=== PATIENT | male | born 1985 | race Caucasian/White ===

== ENCOUNTER 2018-03-05 21:14 | Inpatient (IN) | payer OTHER ==
[2018-03-05] MEDS ORDERED: NALOXONE 0.4 MG/ML 1 ML VIAL IV STA (21:18)
[2018-03-05] MEDS ORDERED: SODIUM CHLORIDE 0.9% 1,000 ML IV STA (21:18)
[2018-03-05] MEDS ORDERED: ACTIVATED CHARCOAL 50 GM/240 ML BOTTLE NG-TUBE STA (21:19)
[2018-03-05 21:37] LABS: Basophils % (A) 0 %; Eosinophils # (A) 0.1 k/uL (0-0.7); Eosinophils % (A) 1 %; HCT 41.6 % (39.0-53.0); HGB 14.7 gm/dL (13.0-17.5); Lymphocytes # (A) 2.4 k/uL (1.0-4.8); Lymphocytes % (A) 21 %; MCH 29.8 pg (25.0-35.0); MCHC 35.2 g/dL (31.0-37.0); MCV 84.6 fL (80.0-100.0); Mean Platelet Volume 8.2; Monocytes # (A) 0.5 k/uL (0-1.0); Monocytes % (A) 4 %; Neutrophils # (A) 8.2 k/uL (1.3-7.7); Neutrophils % (A) 72 %; Platelet Count 248 k/uL (150-450); RBC 4.92 m/uL (4.30-5.90); RDW 12.4 % (11.5-15.5); WBC 11.5 k/uL (3.8-10.6)
[2018-03-05 21:52] LABS: INR 1.1 (<1.2)
[2018-03-05 21:53] LABS: Prothrombin Time 10.5 sec (9.0-12.0)
[2018-03-05 21:56] LABS: ALT 26 U/L (21-72); AST 20 U/L (17-59); Albumin 4.3 g/dL (3.5-5.0); Alcohol <10 mg/dL; Alkaline Phosphatase 100 U/L (38-126); Anion Gap 13 mmol/L; Blood Urea Nitrogen 8 mg/dL (9-20); Calcium 9.7 mg/dL (8.4-10.2); Carbon Dioxide 25 mmol/L (22-30); Chloride 103 mmol/L (98-107); Glucose 121 mg/dL (74-99); Lipase 88 U/L (23-300); Potassium 3.7 mmol/L (3.5-5.1); Salicylate <1.0 mg/dL; Sodium 141 mmol/L (137-145); Total Bilirubin 0.5 mg/dL (0.2-1.3); Total Protein 6.7 g/dL (6.3-8.2)
--- NOTE | 2018-03-05 21:56 | ED ---
General Adult HPI - General Chief complaint: Overdose Stated complaint: Overdose Time Seen by Provider: 03/05/18 21:18 Source: police, EMS, RN notes reviewed, old records reviewed Mode of arrival: EMS Limitations: altered mental status - History of Present Illness Initial comments: 32-year-old male presents as overdose and suicide attempt. Brought in by EMS and local police. He took an unknown amount of pills. These pills were not in any bottles. It is believed that this was gabapentin, citalopram, and verapamil although this is uncertain. Patient is not alert at initial presentation he is protecting his airway. - Related Data Allergies Allergy/AdvReac Type Severity Reaction Status Date / Time Unable to Assess Allergy Verified 03/05/18 21:21 Review of Systems ROS Statement: Those systems with pertinent positive or pertinent negative responses have been documented in the HPI. ROS Other: All systems not noted in ROS Statement are negative. Past Medical History Past Medical History: Unable to Obtain History of Any Multi-Drug Resistant Organisms: Unobtainable Past Surgical History: Unable to Obtain Past Psychological History: Unable to Obtain Smoking Status: Unknown if ever smoked Past Alcohol Use History: Unable to Obtain Past Drug Use History: Unable to Obtain General Exam Limitations: altered mental status General appearance: obtunded (Normal gag, spontaneous respiration) Head exam: Present: atraumatic, normocephalic Eye exam: Present: normal appearance, PERRL ENT exam: Present: mucous membranes dry Neck exam: Present: normal inspection. Absent: tenderness, meningismus Respiratory exam: Present: normal lung sounds bilaterally. Absent: respiratory distress Cardiovascular Exam: Present: normal rhythm, tachycardia GI/Abdominal exam: Present: soft. Absent: distended, tenderness, guarding Extremities exam: Present: normal inspection, normal capillary refill. Absent: pedal edema Neurological exam: Present: motor sensory deficit (Extremities symmetric) Psychiatric exam: Present: suicidal ideation Skin exam: Present: warm, dry, intact. Absent: cyanosis, diaphoretic Course Vital Signs 03/05/18 03/05/18 03/05/18 21:15 22:09 22:34 Temperature 97.7 F Pulse Rate 127 H 128 H 91 Respiratory 12 18 18 Rate Blood Pressure 135/82 142/82 132/79 O2 Sat by Pulse 100 95 98 Oximetry 03/05/18 23:18 Temperature 98.0 F Pulse Rate 77 Respiratory 18 Rate Blood Pressure 93/56 O2 Sat by Pulse 96 Oximetry - Reevaluation(s) Reevaluation #1: 03/05/18 22:22 On reevaluation, patient is admitting to overdose. He is uncertain how many pills he took. Nasogastric tube was replaced and charcoal has been administered. Reevaluation #2: 03/05/18 23:58 On reevaluation, patient is arousable to sternal rub. He does admit to taking pills as a suicide attempt. He is breathing normally and protecting his airway. EKG Findings - EKG Comments: EKG Findings:: EKG: Sinus tachycardia minimal voltage for LVH, rate of 109, [place] interval 150, QRS duration 84, QTC 463 Procedures - Restraint - Face to Face Restraint Occurrence 1 Patient's Immediate Situation: Endangers self safety, Endangers others' safety Patient's Reaction to the Intervention: Calm, Relaxed Patient's Medical & Behavioral Condition: Awake, Alert, Follows directions Need to Continue or Terminate Restraint or Seclusion: Continue Face to Face Eval of Restraint Date: 03/05/18 Face to Face Eval of Restraint Time: 21:25 Medical Decision Making - Medical Decision Making 32-year-old male with overdose and suicide attempt. Patient took an unknown quantity of an unknown amount of medication prior to arrival. NG tube was placed and charcoal given. Laboratory studies reveal normal hemoglobin, mildly elevated white count at 11.5, sodium 141, lactic acid 3.5 this is treated with normal saline infusion. Aspirin is negative, alcohol negative, acetaminophen is elevated at 23. Uncertain at the timing of ingestion of Tylenol. Poison control recommends treating with N-acetylcysteine. Patient will be loaded with 150 mg/kg, second and third dosing are also ordered for 21 hour protocol. Repeat Tylenol level will be obtained as well as repeat AST and ALTs in the morning which is 6 hours from now. Patient is placed on suicide precautions, psychiatry is placed on consult for evaluation one patient is medically cleared. Diagnosis: Overdose, concern for Tylenol overdose, suicide attempt - Lab Data Result diagrams: 03/05/18 21:23 03/05/18 21:23 Lab Results 03/05/18 03/05/18 03/05/18 Range/Units 21:23 21:23 21:23 WBC 11.5 H (3.8-10.6) k/uL RBC 4.92 (4.30-5.90) m/uL Hgb 14.7 (13.0-17.5) gm/dL Hct 41.6 (39.0-53.0) % MCV 84.6 (80.0-100.0) fL MCH 29.8 (25.0-35.0) pg MCHC 35.2 (31.0-37.0) g/dL RDW 12.4 (11.5-15.5) % Plt Count 248 (150-450) k/uL Neutrophils % 72 % Lymphocytes % 21 % Monocytes % 4 % Eosinophils % 1 % Basophils % 0 % Neutrophils # 8.2 H (1.3-7.7) k/uL Lymphocytes # 2.4 (1.0-4.8) k/uL Monocytes # 0.5 (0-1.0) k/uL Eosinophils # 0.1 (0-0.7) k/uL Basophils # 0.0 (0-0.2) k/uL PT 10.5 (9.0-12.0) sec INR 1.1 (<1.2) Sodium 141 (137-145) mmol/L Potassium 3.7 (3.5-5.1) mmol/L Chloride 103 (98-107) mmol/L Carbon Dioxide 25 (22-30) mmol/L Anion Gap 13 mmol/L BUN 8 L (9-20) mg/dL Creatinine 0.80 (0.66-1.25) mg/dL Est GFR (CKD-EPI)AfAm >90 (>60 ml/min/1.73 sqM) Est GFR (CKD-EPI)NonAf >90 (>60 ml/min/1.73 sqM) Glucose 121 H (74-99) mg/dL Plasma Lactic Acid Moses (0.7-2.0) mmol/L Calcium 9.7 (8.4-10.2) mg/dL Total Bilirubin 0.5 (0.2-1.3) mg/dL AST 20 (17-59) U/L ALT 26 (21-72) U/L Alkaline Phosphatase 100 (38-126) U/L Troponin I (0.000-0.034) ng/mL Total Protein 6.7 (6.3-8.2) g/dL Albumin 4.3 (3.5-5.0) g/dL Lipase 88 (23-300) U/L Urine Color Urine Appearance (Clear) Urine pH (5.0-8.0) Ur Specific Jessie (1.001-1.035) Urine Protein (Negative) Urine Glucose (UA) (Negative) Urine Ketones (Negative) Urine Blood (Negative) Urine Nitrite (Negative) Urine Bilirubin (Negative) Urine Urobilinogen (<2.0) mg/dL Ur Leukocyte Esterase (Negative) Urine RBC (0-5) /hpf Urine WBC (0-5) /hpf Urine Bacteria (None) /hpf Salicylates <1.0 mg/dL Urine Opiates Screen (NotDetected) Ur Oxycodone Screen (NotDetected) Urine Methadone Screen (NotDetected) Ur Propoxyphene Screen (NotDetected) Acetaminophen 23.0 ug/mL Ur Barbiturates Screen (NotDetected) U Tricyclic Antidepress (NotDetected) Ur Phencyclidine Scrn (NotDetected) Ur Amphetamines Screen (NotDetected) U Methamphetamines Scrn (NotDetected) U Benzodiazepines Scrn (NotDetected) Urine Cocaine Screen (NotDetected) U Marijuana (THC) Screen (NotDetected) Serum Alcohol <10 mg/dL 03/05/18 03/05/18 03/05/18 Range/Units 21:23 21:23 22:00 WBC (3.8-10.6) k/uL RBC (4.30-5.90) m/uL Hgb (13.0-17.5) gm/dL Hct (39.0-53.0) % MCV (80.0-100.0) fL MCH (25.0-35.0) pg MCHC (31.0-37.0) g/dL RDW (11.5-15.5) % Plt Count (150-450) k/uL Neutrophils % % Lymphocytes % % Monocytes % % Eosinophils % % Basophils % % Neutrophils # (1.3-7.7) k/uL Lymphocytes # (1.0-4.8) k/uL Monocytes # (0-1.0) k/uL Eosinophils # (0-0.7) k/uL Basophils # (0-0.2) k/uL PT (9.0-12.0) sec INR (<1.2) Sodium (137-145) mmol/L Potassium (3.5-5.1) mmol/L Chloride (98-107) mmol/L Carbon Dioxide (22-30) mmol/L Anion Gap mmol/L BUN (9-20) mg/dL Creatinine (0.66-1.25) mg/dL Est GFR (CKD-EPI)AfAm (>60 ml/min/1.73 sqM) Est GFR (CKD-EPI)NonAf (>60 ml/min/1.73 sqM) Glucose (74-99) mg/dL Plasma Lactic Acid Moses 3.8 H* (0.7-2.0) mmol/L Calcium (8.4-10.2) mg/dL Total Bilirubin (0.2-1.3) mg/dL AST (17-59) U/L ALT (21-72) U/L Alkaline Phosphatase (38-126) U/L Troponin I <0.012 (0.000-0.034) ng/mL Total Protein (6.3-8.2) g/dL Albumin (3.5-5.0) g/dL Lipase (23-300) U/L Urine Color Light Yellow Urine Appearance Clear (Clear) Urine pH 7.0 (5.0-8.0) Ur Specific Jessie 1.003 (1.001-1.035) Urine Protein Negative (Negative) Urine Glucose (UA) Negative (Negative) Urine Ketones Negative (Negative) Urine Blood Small H (Negative) Urine Nitrite Negative (Negative) Urine Bilirubin Negative (Negative) Urine Urobilinogen <2.0 (<2.0) mg/dL Ur Leukocyte Esterase Negative (Negative) Urine RBC 1 (0-5) /hpf Urine WBC 1 (0-5) /hpf Urine Bacteria Rare H (None) /hpf Salicylates mg/dL Urine Opiates Screen Not Detected (NotDetected) Ur Oxycodone Screen Not Detected (NotDetected) Urine Methadone Screen Not Detected (NotDetected) Ur Propoxyphene Screen Not Detected (NotDetected) Acetaminophen ug/mL Ur Barbiturates Screen Detected H (NotDetected) U Tricyclic Antidepress Not Detected (NotDetected) Ur Phencyclidine Scrn Not Detected (NotDetected) Ur Amphetamines Screen Not Detected (NotDetected) U Methamphetamines Scrn Not Detected (NotDetected) U Benzodiazepines Scrn Not Detected (NotDetected) Urine Cocaine Screen Not Detected (NotDetected) U Marijuana (THC) Screen Not Detected (NotDetected) Serum Alcohol mg/dL Critical Care Time Critical Care Time: Yes Total Critical Care Time: 35 Disposition Clinical Impression: Acetaminophen overdose, Drug overdose, Suicide attempt by multiple drug overdose Disposition: ADMITTED IP TO THIS [facility] Condition: Serious Is patient prescribed a controlled substance at d/c from ED?: No Referrals: None,Stated [Primary Care Provider] - 1-2 days Decision to Admit Reason: Admit from EC Decision Date: 03/06/18 Decision Time: 00:05
[2018-03-05 22:20] LABS: Appearance,Urine Clear (Clear); Bacteria,Urine Rare /hpf; Bilirubin,Urine Negative (Negative); Blood,Urine Small (Negative); Color,Urine Light Yellow; Glucose,Urine (UA) Negative (Negative); Ketones,Urine Negative (Negative); Leukocyte Esterase,Urine Negative (Negative); Nitrite,Urine Negative (Negative); Protein,Urine Negative (Negative); RBC,Urine 1 /hpf (0-5); Specific Gravity,Urine 1.003 (1.001-1.035); Urobilinogen,Urine <2.0 mg/dL (<2.0); WBC,Urine 1 /hpf (0-5)
[2018-03-05] MEDS ORDERED: SODIUM CHLORIDE 0.9% 1,000 ML IV ONE (22:20)
[2018-03-05 22:31] LABS: Cocaine Screen,Urine Not Detected (NotDetected); Phencyclidine Screen,Urine Not Detected (NotDetected); Urn Cannabinoid Scrn Not Detected (NotDetected)
[2018-03-05 22:32] LABS: Amphetamine Screen,Urine Not Detected (NotDetected); Barbiturate Screen,Urine Detected (NotDetected); Benzodiazepines Screen,Urine Not Detected (NotDetected); Methadone Screen, Urine Not Detected (NotDetected); Opiate Screen,Urine Not Detected (NotDetected); Oxycodone Screen, Urine Not Detected (NotDetected); Tricyclic Antidepressant,Urine Not Detected (NotDetected)
[2018-03-05] MEDS ORDERED: ACETYLCYSTEINE IV 200 MG/ML 30 ML VIAL IV ONE (22:34)
[2018-03-05] MEDS ORDERED: WATER IV ONE ×2 (23:00)
[2018-03-05] MEDS ORDERED: ACETYLCYSTEINE IV ONE ×2 (23:00)
[2018-03-05] MEDS ORDERED: DEXTROSE 5% IV ONE ×2 (23:00)
[2018-03-05] MEDS ORDERED: NALOXONE 0.4 MG/ML 1 ML VIAL IV PRN (23:55)
[2018-03-06] MEDS ORDERED: WATER IV ONE ×4 (00:15→04:30)
[2018-03-06] MEDS ORDERED: ACETYLCYSTEINE IV ONE ×4 (00:15→04:30)
[2018-03-06] MEDS ORDERED: DEXTROSE 5% IV ONE ×4 (00:15→04:30)
[2018-03-06] MEDS: SODIUM CHLORIDE 0.9% 1,000 ML IV SCH ×2 (00:32→15:53)
[2018-03-06 01:14] LABS: Glucose,Whole Blood 124 mg/dL (75-99)
[2018-03-06 01:42] LABS: Basophils % (A) 0 %; Eosinophils # (A) 0.1 k/uL (0-0.7); Eosinophils % (A) 1 %; HCT 39.1 % (39.0-53.0); Lymphocytes # (A) 2.3 k/uL (1.0-4.8); Lymphocytes % (A) 20 %; MCH 30.7 pg (25.0-35.0); MCHC 35.7 g/dL (31.0-37.0); MCV 85.9 fL (80.0-100.0); Mean Platelet Volume 8.6; Monocytes # (A) 0.4 k/uL (0-1.0); Monocytes % (A) 4 %; Neutrophils # (A) 8.5 k/uL (1.3-7.7); Neutrophils % (A) 74 %; Platelet Count 213 k/uL (150-450); RBC 4.55 m/uL (4.30-5.90); RDW 12.5 % (11.5-15.5); WBC 11.6 k/uL (3.8-10.6)
[2018-03-06 01:51] LABS: ALT 29 U/L (21-72); AST 12 U/L (17-59); Albumin 3.5 g/dL (3.5-5.0); Alkaline Phosphatase <20 U/L (38-126); Anion Gap 11 mmol/L; Blood Urea Nitrogen 6 mg/dL (9-20); Calcium 8.5 mg/dL (8.4-10.2); Carbon Dioxide 24 mmol/L (22-30); Chloride 108 mmol/L (98-107); Glucose 84 mg/dL (74-99); Magnesium 2.1 mg/dL (1.6-2.3); Potassium 3.9 mmol/L (3.5-5.1); Sodium 143 mmol/L (137-145); Total Bilirubin 0.3 mg/dL (0.2-1.3); Total Protein 5.7 g/dL (6.3-8.2)
[2018-03-06 01:54] VITALS: BMI 20.5
[2018-03-06 05:05] LABS: Basophils % (A) 0 %; Eosinophils # (A) 0.2 k/uL (0-0.7); Eosinophils % (A) 2 %; HCT 38.9 % (39.0-53.0); HGB 13.7 gm/dL (13.0-17.5); Lymphocytes # (A) 2.4 k/uL (1.0-4.8); Lymphocytes % (A) 22 %; MCHC 35.1 g/dL (31.0-37.0); MCV 85.4 fL (80.0-100.0); Mean Platelet Volume 7.8; Monocytes # (A) 0.6 k/uL (0-1.0); Monocytes % (A) 5 %; Neutrophils # (A) 7.4 k/uL (1.3-7.7); Neutrophils % (A) 69 %; Platelet Count 208 k/uL (150-450); RBC 4.56 m/uL (4.30-5.90); RDW 12.5 % (11.5-15.5); WBC 10.7 k/uL (3.8-10.6)
[2018-03-06 05:16] LABS: ALT 28 U/L (21-72); AST 14 U/L (17-59); Albumin 3.4 g/dL (3.5-5.0); Alkaline Phosphatase 35 U/L (38-126); Anion Gap 10 mmol/L; Blood Urea Nitrogen 5 mg/dL (9-20); Calcium 8.8 mg/dL (8.4-10.2); Carbon Dioxide 25 mmol/L (22-30); Chloride 107 mmol/L (98-107); Glucose 88 mg/dL (74-99); Phosphorus 2.9 mg/dL (2.5-4.5); Potassium 3.5 mmol/L (3.5-5.1); Sodium 142 mmol/L (137-145); Total Bilirubin 0.6 mg/dL (0.2-1.3); Total Protein 5.6 g/dL (6.3-8.2)
[2018-03-06 05:20] LABS: INR 1.2 (<1.2); Prothrombin Time 11.2 sec (9.0-12.0)
[2018-03-06] MEDS ORDERED: ONDANSETRON 4 MG/2 ML VIAL IVP PRN (10:17)
[2018-03-06] MEDS ORDERED: CALCIUM CARBONATE 500 MG CHEWABLE PO PRN (10:18)
[2018-03-06] MEDS ORDERED: PANTOPRAZOLE 40 MG/10 ML VIAL IVP SCH (10:30)
[2018-03-06] MEDS: POTASSIUM CHLORIDE ER 20 MEQ TAB.ER PO SCH ×2 (11:44→15:53)
--- NOTE | 2018-03-06 11:58 | P.CN ---
Psychiatric Consult - . Consult date: 03/06/18 Consult:: 03/06/18 11:42 Patient was seen for a psych consult regarding "suicide attempt, overdose". Patient said he has been living with his girlfriend for the last 2 or 3 months. Apparently they had an argument, she took several pills and then patient took some pills went for a walk and then came back and took some more pills to get high. He insists it was only to get high and not to kill himself. He apparently posted something on Facebook saying that he doesn't want to live anymore etc. He also said he doesn't remember all those things and must have done all those things when he passed out. Patient denies any suicide attempts, self abusive behavior etc. in the past. He also said he never thought about dying or killing himself. He said he has 2 children 1 living in [facility] and another one in [facility]. He still is part of their life and said he cannot do anything to hurt himself since he loves his children too much. He said his plans include breaking up from his girlfriend and going back to [place] [facility] where he can get a good job. 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 He said he has Medicare health insurance. His UDS is positive for barbiturates and he does not know how it got in there since he does not do it. He thinks it is from his girlfriend's he'll box. His Tylenol level was 23 which is subtherapeutic, let alone toxic. Patient said he is not on any medication. He said he had taken Xanax and Zoloft in the past. He said he has not been going to his family doctor and ran out of prescription. He said he can make his own arrangement for outpatient follow-up in [facility] since they're these were he plans on going to. This is a rather thin white male who was seen in his bed. He has multiple tattoos. He has a well-maintained goatee and mustache with the skin around clean-shaven. He does not show any psychomotor agitation or retardation. His speech is spontaneous relevant and goal-directed. His mood is euthymic and affect is appropriate to the thought content. He denies hallucinations and delusional thinking. He insists that he is not having any thoughts of hurting himself or others. He is well oriented with adequate memory concentration etc. His insight appears to be fair and judgment appears to have been impaired yesterday as evidenced by his taking too many pills. Assessment: Probable adjustment disorder unspecified. Per his report this was not a suicide attempt and he denies current suicide thoughts or plans Suggestion: Patient does not need a sitter. Patient can be discharged when he is medically cleared. Patient would appreciate a mental health referral in [facility] upon discharge. But, the nurse tells me that patient has a police hold on him and has to be discharged to the custody of police. If he is going to be discharged to the police custody, police would need to make mental health referral upon release from the custody.
[2018-03-06 18:33] LABS: INR 1.2 (<1.2); Prothrombin Time 11.2 sec (9.0-12.0)
[2018-03-06 18:39] LABS: ALT 24 U/L (21-72); AST 13 U/L (17-59); Acetaminophen <10.0 ug/mL; Albumin 3.2 g/dL (3.5-5.0); Alkaline Phosphatase 58 U/L (38-126); Anion Gap 13 mmol/L; Blood Urea Nitrogen 3 mg/dL (9-20); Carbon Dioxide 24 mmol/L (22-30); Chloride 106 mmol/L (98-107); Glucose 109 mg/dL (74-99); Potassium 3.8 mmol/L (3.5-5.1); Sodium 143 mmol/L (137-145); Total Bilirubin 0.4 mg/dL (0.2-1.3); Total Protein 5.3 g/dL (6.3-8.2)
--- NOTE | 2018-03-06 19:25 | HP ---
HISTORY AND PHYSICAL DATE OF SERVICE: 03/06/2018 PRESENTING COMPLAINT: Overdose. HISTORY OF PRESENTING COMPLAINT: This is a 32-year-old patient with no family doctor. The patient was with his girlfriend and she was getting a bit stressed out. She decided to take 3 Klonopin with Xanax to go to sleep and during that time, he decided to go through her cellphone and he found that she has been talking to her to her ex-boyfriend and this really enraged him and the patient decided to take her pills handful by handful, which could have included the Klonopin, maybe Celexa, verapamil, gabapentin, but it is unclear, and he decided to then walk toward the water. He does not remember then what happened and the patient brought in by the police, who had petitioned him and then contacted poison control. The patient had an NG tube placed and charcoal was given, admitted to the ICU for close monitoring. When I saw the patient, the patient is awake and he states he feels stupid about the whole thing and it is not worth his life to give up for a girl and wanted to eat some food. At that time, the patient wanted to end it all and actually was planning to jump off the bridge. The patient initial acetaminophen level was 23, did come down to 11 and then to less than 10. Serum alcohol was less than 10. Salicylate was less than 1. Urine drug screen was positive for barbiturates. The patient has a diagnosis of anxiety, depression and stopped taking his medications, supposedly Paxil and Zoloft, a few months ago because of insurance reasons. The patient has a sitter. REVIEW OF SYSTEM: CONSTITUTIONAL: Tired. HEENT: None. RESPIRATORY: None. CARDIOVASCULAR: None. GASTROINTESTINAL: Some epigastric discomfort. GENITOURINARY: None. MUSCULOSKELETAL: None. DERMATOLOGIC: None. HEMATOLOGIC: None. LYMPHATIC: None. PSYCHIATRY: Anxiety, depression. NEUROLOGICAL: None. PAST MEDICAL HISTORY: Anxiety, depression, panic attacks. PAST SURGICAL HISTORY: Tonsillectomy. SOCIAL HISTORY: The patient smokes cigarettes, lives alone. Denies alcohol. Denies use of recreational drugs. FAMILY HISTORY: Reviewed, noncontributory to presentation. HOME MEDICATIONS: None. ALLERGIES: None. PHYSICAL EXAMINATION: VITAL SIGNS: On initial presentation, temperature 97.7, pulse 127, respirations 12, blood pressure 130/82, pulse ox 100% on 2L currently. GENERAL APPEARANCE: Sitting up, awake, tired-appearing. EYES: Pupils equal. Conjunctivae normal. HEENT: External nose and ears normal. Oral cavity normal. NECK: JVD not raised. Mass not palpable. RESPIRATORY: Effort normal. LUNGS: Clear. CARDIOVASCULAR: First and second sounds normal. No edema. ABDOMEN: Epigastric tenderness. No guarding or rigidity. Liver and spleen not palpable. LYMPHATIC: No lymph nodes palpable in neck or axillae. PSYCHIATRY: Alert and oriented x3. Mood and affect low-appearing. NEUROLOGICAL: Pupils equal. Cranial nerve grossly intact. Power and sensation grossly intact. INVESTIGATIONS: White count 11.5, hemoglobin 14.7. Potassium 3.7, BUN 8, creatinine 0.80. Anion gap is 13. Initial plasma lactic acid was 3.8. Troponin less than 0.012. Urine drug screen positive for barbiturates. Salicylates less than 1. Initial acetaminophen 23, then 11, then 10. Serum alcohol less than 10. ASSESSMENT: 1. Acute overdose of multiple drugs, exactly unknown. It could have been possible Klonopin, gabapentin, Celexa, but is unknown. Patient did receive charcoal. 2. Possible acetaminophen overdose. Since the quantity was not known, the protocol giving N-acetylcysteine needs to be to be followed. 3. Severe anxiety and depression resulting in suicide attempt, given the patient planned to jump off the bridge into the water. 4. Chronic nicotine dependence. Patient is a cigarette smoker. 5. Acute lactic acidosis, likely type 2. PLAN: The patient is getting IV fluids, getting N-acetylcysteine, is on telemetry. Psychiatry was consulted. I saw this patient earlier this month earlier today. I did do a certification. I did explain to the patient it is important for him to get psychiatry help. Care was discussed in detail with the patient. MMODL / IJN: [id number] /
[2018-03-06 21:31] VITALS: BP 110/58; PULSE 53; RESP 15; TEMP 97.9
[2018-03-06 21:48] LABS: INR 1.2 (<1.2); Prothrombin Time 11.2 sec (9.0-12.0)
[2018-03-06 21:53] LABS: ALT 27 U/L (21-72); AST 13 U/L (17-59)
--- NOTE | 2018-03-12 06:01 | DS ---
DISCHARGE SUMMARY DATE OF ADMISSION: March 05, 2018. DATE OF DISCHARGE: March 06, 2018. FINAL DIAGNOSES: 1. Acute overdose of multiple drugs possibly including Klonopin, Gabapentin and Celexa. 2. Possible acetaminophen overdose. Patient given a course of N-acetylcysteine. 3. Suicide attempt. 4. Chronic nicotine dependence, patient is a cigarette smoker. 5. Acute lactic acidosis, likely type 2. 6. Adjustment disorder. HOSPITAL COURSE: This patient who found on a girlfriend's phone that she was nilesh her ex- boyfriend. The patient became upset and took an overdose of what may have been Celexa, verapamil, Gabapentin and the patient was petitioned and Poison Control was contacted from the ER. NG tube was placed. [place] was given. The patient was in the ICU. Did receive N-acetylcysteine. Initial acetaminophen level was 23. Later when the patient came around, he did feel that he was very stupid doing about the whole thing. Had a sitter initially. The patient was seen by Psychiatry, Dr. Ibarra who okayed and cleared to go home. The patient otherwise was feeling much better. EXAM: Lungs are clear. Cardiovascular: 1st and second sounds normal. The patient's liver functions were good and acetaminophen level less than 10. DISCHARGE MEDICATIONS: None. FOLLOWUP: With [facility] in 1 week[address] Follow up with Dr. Devine in [address] Devine. MMJAIMEL / UMAN: [id number] /
== END 2018-03-06 23:35 | DRG 918 ==
LOC: EC 21:14 → 6ICU 23:55
PROVIDERS: ADMIT Hospitalist; ATTEND Hospitalist
PROC: 0DH673Z Insertion of Infusion Device into Stomach, Via Natural or Artificial Opening (ICD-10-PCS; principal; 2018-03-05)
DX: T42.3X2A Poisoning by barbiturates, intentional self-harm, initial encounter (principal); E87.2 Acidosis; T39.1X2A Poisoning by 4-Aminophenol derivatives, intentional self-harm, initial encounter; F43.20 Adjustment disorder, unspecified; F32.9 Major depressive disorder, single episode, unspecified; F41.0 Panic disorder [episodic paroxysmal anxiety]; F17.210 Nicotine dependence, cigarettes, uncomplicated; Z71.6 Tobacco abuse counseling
CPT/HCPCS: 36415; 80053; 80306; 80320; 81001; 83520; 83605; 83690; 83735; 84100; 84450; 84460; 84484; 85025; 85610; 93005; 96361; 96365; 96375; 99291

== ENCOUNTER 2018-03-07 21:48 | Inpatient (IN) | payer MEDICAID, OTHER ==
--- NOTE | 2018-03-07 22:42 | ED ---
General Adult HPI - General Chief complaint: Psychiatric Symptoms Stated complaint: mental health Time Seen by Provider: 03/07/18 22:10 Source: patient, RN notes reviewed Mode of arrival: ambulatory Limitations: no limitations - History of Present Illness Initial comments: This is a 32-year-old male who has a past history significant for anxiety and depression. Patient states on night he overdosed was admitted to the hospital he was released. Patient states since being released she's been just walking and hasn't slept at all and he is becoming more more anxious. Patient states his girlfriend overdosed today and he cannot find out the status of his girlfriend so he is made her more anxious and now he is suicidal. Patient states his last attempt was . Patient today denies any attempts and denies any illegal drugs or alcohol use. Patient denies any physical complaints today. Patient denies headache patient denies numbness weakness. Patient is chest pain or palpitations. Patient denies shortness of breath or difficulty breathing. Patient denies abdominal pain. Patient denies nausea vomiting diarrhea. Patient denies any recent fever chills or cough - Related Data Previous Rx's Medication Instructions Recorded Calcium Carbonate [Tums] 1,000 mg PO QID PRN chew 03/06/18 Nicotine 21Mg/24Hr Patch [Habitrol] 1 each TRANSDERM DAILY #30 patch 03/06/18 Allergies Allergy/AdvReac Type Severity Reaction Status Date / Time Unable to Assess Allergy Verified 03/05/18 21:21 Review of Systems ROS Statement: Those systems with pertinent positive or pertinent negative responses have been documented in the HPI. ROS Other: All systems not noted in ROS Statement are negative. Past Medical History Past Medical History: No Reported History Additional Past Medical History / Comment(s): Anxiety, Depression, and Panic Attacks History of Any Multi-Drug Resistant Organisms: None Reported Past Surgical History: Tonsillectomy Past Anesthesia/Blood Transfusion Reactions: No Reported Reaction Past Psychological History: Anxiety, Depression, Panic Disorder Smoking Status: Current every day smoker Past Alcohol Use History: None Reported Past Drug Use History: None Reported General Exam - General Exam Comments Initial Comments: GENERAL: Patient is well-developed and well-nourished. Patient is nontoxic and well- hydrated and is in no acute distress. ENT: Neck is soft and supple. No significant lymphadenopathy is noted. Oropharynx is clear. Moist mucous membranes. Neck has full range of motion without eliciting any pain. There is no thyroid enlargement and no masses were felt. EYES: The sclera were anicteric and conjunctiva were pink and moist. Extraocular movements were intact and pupils were equal round and reactive to light. Eyelids were unremarkable. PULMONARY: Unlabored respirations. Good breath sounds bilaterally. No audible rales rhonchi or wheezing was noted. CARDIOVASCULAR: There is a regular rate and rhythm without any murmurs gallops or rubs. Femoral pulses are equal bilaterally ABDOMEN: Soft and nontender with normal bowel sounds. No palpable organomegaly was noted. There is no palpable pulsatile mass. SKIN: Skin is clear with no lesions or rashes and otherwise unremarkable. NEUROLOGIC: Patient is alert and oriented x3. Cranial nerves II through XII are grossly intact. Motor and sensory are also intact. Normal speech, volume and content. Symmetrical smile. Cerebellar exam grossly intact. MUSCULOSKELETAL: Normal extremities with adequate strength and full range of motion. No lower extremity swelling or edema. No calf tenderness. LYMPHATICS: No significant lymphadenopathy is noted PSYCHIATRIC: Patient seems very anxious about the status of his girlfriend to overdose today. Patient is also tearful during his conversation with me and verbalizes suicidal ideations. Limitations: no limitations Course Vital Signs 03/07/18 22:11 Temperature 98.9 F Pulse Rate 89 Respiratory 18 Rate Blood Pressure 120/61 O2 Sat by Pulse 98 Oximetry Medical Decision Making - Medical Decision Making EPS came down to evaluate the patient and decided that the patient needed to stay. - Lab Data Lab Results 03/07/18 Range/Units 22:27 Urine Opiates Screen Not Detected (NotDetected) Ur Oxycodone Screen Not Detected (NotDetected) Urine Methadone Screen Not Detected (NotDetected) Ur Propoxyphene Screen Not Detected (NotDetected) Ur Barbiturates Screen Detected H (NotDetected) U Tricyclic Antidepress Not Detected (NotDetected) Ur Phencyclidine Scrn Not Detected (NotDetected) Ur Amphetamines Screen Not Detected (NotDetected) U Methamphetamines Scrn Not Detected (NotDetected) U Benzodiazepines Scrn Not Detected (NotDetected) Urine Cocaine Screen Not Detected (NotDetected) U Marijuana (THC) Screen Not Detected (NotDetected) Disposition Clinical Impression: Depression, Suicidal ideation Disposition: ADMITTED IP TO THIS HOSP Referrals: None,Stated [Primary Care Provider] - 1-2 days Time of Disposition: 02:35
[2018-03-07 23:01] LABS: Amphetamine Screen,Urine Not Detected (NotDetected); Barbiturate Screen,Urine Detected (NotDetected); Benzodiazepines Screen,Urine Not Detected (NotDetected); Cocaine Screen,Urine Not Detected (NotDetected); Methadone Screen, Urine Not Detected (NotDetected); Opiate Screen,Urine Not Detected (NotDetected); Oxycodone Screen, Urine Not Detected (NotDetected); Phencyclidine Screen,Urine Not Detected (NotDetected); Tricyclic Antidepressant,Urine Not Detected (NotDetected); Urn Cannabinoid Scrn Not Detected (NotDetected)
[2018-03-08] MEDS ORDERED: MAG HYDROX/AL HYDROX/SIMETH 30 ML CUP PO PRN (03:00)
[2018-03-08] MEDS ORDERED: ACETAMINOPHEN TAB 325 MG TAB PO PRN (03:00)
[2018-03-08] MEDS ORDERED: ZIPRASIDONE 20 MG VIAL IM PRN (03:00)
[2018-03-08] MEDS ORDERED: MAGNESIUM HYDROXIDE 2,400 MG/10 ML CUP PO PRN (03:00)
[2018-03-08 03:15] VITALS: RESP 16
[2018-03-08] MEDS: NICOTINE 21MG/24HR PATCH TRANSDERM SCH ×2 (10:04→11:38)
[2018-03-08] MEDS: VENLAFAXINE HCL ER 37.5 MG CAP PO SCH (11:40)
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
[2018-03-08 14:25] LABS: ALT 27 U/L (21-72); AST 18 U/L (17-59); Alkaline Phosphatase 81 U/L (38-126); Anion Gap 12 mmol/L; Basophils % (A) 0 %; Blood Urea Nitrogen 10 mg/dL (9-20); Calcium 9.7 mg/dL (8.4-10.2); Carbon Dioxide 31 mmol/L (22-30); Chloride 100 mmol/L (98-107); Eosinophils # (A) 0.4 k/uL (0-0.7); Eosinophils % (A) 6 %; Glucose 106 mg/dL (74-99); HCT 40.6 % (39.0-53.0); HGB 14.1 gm/dL (13.0-17.5); Lymphocytes # (A) 1.7 k/uL (1.0-4.8); Lymphocytes % (A) 26 %; MCH 29.8 pg (25.0-35.0); MCHC 34.7 g/dL (31.0-37.0); Mean Platelet Volume 8.1; Monocytes # (A) 0.4 k/uL (0-1.0); Monocytes % (A) 7 %; Neutrophils # (A) 3.9 k/uL (1.3-7.7); Neutrophils % (A) 59 %; Platelet Count 186 k/uL (150-450); Potassium 4.3 mmol/L (3.5-5.1); RBC 4.72 m/uL (4.30-5.90); RDW 12.6 % (11.5-15.5); Sodium 143 mmol/L (137-145); Total Bilirubin 0.4 mg/dL (0.2-1.3); Total Protein 6.2 g/dL (6.3-8.2); WBC 6.6 k/uL (3.8-10.6)
--- NOTE | 2018-03-08 19:23 | P.HPIM ---
History of Present Illness H&P Date: 03/08/18 Chief Complaint: Suicidal thoughts 32-year-old male who has a past history significant for anxiety and depression presented to the ER because of suicidal thoughts. Patient attempted suicide last when he overdosed with multiple meds. He was then cleared by psychiatry service and released. Since his release he has been having social issues with his girlfriend who's cheating on him with another frandy in [place]. He has been having increasing symptoms of depression and anxiety as well as insomnia since discharge. He has not slept since he was released. Patient denied any suicide attempt before presentation to the hospital. No illegal drugs or alcohol use. Patient also denied any physical complaints. No chest pain, shortness of breath, fevers, chills, headache, focal numbness weakness. No palpitations, abdominal pain, nausea vomiting diarrhea. Review of Systems 12 point review of system performed, negative except HPI Past Medical History Past Medical History: No Reported History Additional Past Medical History / Comment(s): Anxiety, Depression, and Panic Attacks History of Any Multi-Drug Resistant Organisms: None Reported Past Surgical History: Tonsillectomy Past Anesthesia/Blood Transfusion Reactions: No Reported Reaction Past Psychological History: Anxiety, Depression, Panic Disorder Smoking Status: Current every day smoker Past Alcohol Use History: None Reported Past Drug Use History: None Reported Medications and Allergies Home Medications Medication Instructions Recorded Confirmed Type Calcium Carbonate [Tums] 1,000 mg PO QID PRN chew 03/06/18 Rx Nicotine 21Mg/24Hr Patch [Habitrol] 1 each TRANSDERM DAILY #30 patch 03/06/18 Rx Allergies Allergy/AdvReac Type Severity Reaction Status Date / Time Unable to Assess Allergy Verified 03/05/18 21:21 Physical Exam Vitals: Vital Signs Temp Pulse Pulse Resp BP BP Pulse Ox 03/08/18 03:25 97.9 F 82 16 123/78 98 03/08/18 03:14 97.1 F L 66 16 107/58 99 03/07/18 22:11 98.9 F 89 18 120/61 98 Intake and Output 03/07/18 03/07/18 03/08/18 14:59 22:59 06:59 Other: Weight 61.235 kg 57.2 kg Constitutional: No acute distress, conversant, pleasant Eyes:Anicteric sclerae, moist conjunctiva, no lid-lag, PERRLA, ENMT: Oropharynx clear, no erythema, exudates Neck: Supple, FROM, no masses, or JVD, No carotid bruits, No thyromegaly Lungs: Clear to auscultation, Clear to percussion, Normal respiratory effort, no accessory muscle use Cardiovascular: Heart regular in rate and rhythm, No murmurs, gallops, or rubs, No peripheral edema Abdominal: Soft, Nontender, no guarding, rebound or rigidity, Normoactive bowel sounds, No hepatomegaly, No splenomegaly, No palpable mass Skin: Normal temperature, tone, texture, turgor, no induration, No subcutaneous nodules, No rash, lesions, No ulcers Extremities: No digital cyanosis, No clubbing, Pedal pulses intact and symmetrical, Radial pulses intact and symmetrical, No calf tenderness Psychiatric: Alert and oriented to person, place and time Neuro: Muscles Strength 5/5 in all 4 extremities, Sensation to light touch grossly present throughout, Cranial nerves II-XII grossly intact, no focal sensory deficits Results CBC & Chem 7: 03/08/18 14:02 03/08/18 14:02 Labs: Abnormal Lab Results - Last 24 Hours (Table) 03/07/18 Range/Units 22:27 Ur Barbiturates Screen Detected H (NotDetected) Assessment and Plan Plan: #1 Recurrent suicidal thoughts/worsening anxiety and depression: Management per psychiatry Suicide precautions #2 Smoking: Advised to quit Nicotine patch #3 Health maintenance CBC, CMP, TSH
[2018-03-09 06:44] VITALS: BP 93/54; PULSE 49; TEMP 98
[2018-03-09 09:22] VITALS: BMI 18.6
[2018-03-09] MEDS: VENLAFAXINE HCL ER 37.5 MG CAP PO SCH (09:22)
[2018-03-09] MEDS: NICOTINE 21MG/24HR PATCH TRANSDERM SCH (09:22)
--- NOTE | 2018-03-09 09:56 | P.DS ---
Providers Date of admission: 03/08/18 02:38 Expected date of discharge: 03/09/18 Attending physician: Leonard Ibarra Consults: 03/08/18 03:00 Consult Physician Routine Consulting Provider: [facility] Consult Reason/Comments: H & P Do you want consulting provider notified?: Yes Primary care physician: Stated None Hospital Course: Patient had his psychiatric evaluation done by Dr. Sher, had physical examination and psychosocial evaluation. After psychiatric evaluation he was started on Effexor 37.[address] Sher. Patient stated that after he was discharged from ICU he did not have his ID, could not get [employer] ticket to go to [place], and so he decided to come to the ER and said that he was suicidal since he was homeless. He insists that he was not suicidal and did not want to stay out on the street and decided to come to the hospital. He also said he had talked to his mother who is going to send her some money cram for him to go back to [place]. He said he will see the doctor over there for possible medications and agreed to seek some drug counseling. In view of all these it was decided to discharge him. Condition on discharge: This is a white ambulatory male with good hygiene. He does not show any psychomotor agitation or retardation. His speech is spontaneous relevant and goal-directed. His mood is euthymic to cheerful and affect is appropriate. He insists that he is not suicidal or homicidal. He continues to deny hallucinations and delusional thinking. He is well oriented with adequate memory concentration general fund of knowledge etc. His insight appears to be adequate and judgment is extremely manipulative to meet his needs. Diagnosis on discharge: Adjustment disorder, unspecified F 43.20. Other substance use disorder moderate to severe F 19.20 NKDA. Patient was advised and agreed to seek drug counseling, to learn better coping skills through therapy, seek medication as needed from his psychiatrist. Patient Condition at Discharge: Good Plan - Discharge Summary Discharge Rx Participant: No New Discharge Prescriptions: Discontinued Calcium Carbonate [Tums] 1,000 mg PO QID PRN chew PRN Reason: Heartburn Nicotine 21Mg/24Hr Patch [Habitrol] 1 each TRANSDERM DAILY #30 patch Follow up Appointment(s)/Referral(s): None,Stated [Primary Care Provider] - 1-2 days
== END 2018-03-09 11:16 | disposition home or self-care (01) | DRG 882 ==
LOC: EC 21:48 → 3MHU 03-08 02:38
PROVIDERS: ADMIT Psychiatry & Neurology Psychiatry; ATTEND Psychiatry & Neurology Psychiatry
DX: F43.20 Adjustment disorder, unspecified (principal); F33.2 Major depressive disorder, recurrent severe without psychotic features; F22 Delusional disorders; F41.0 Panic disorder [episodic paroxysmal anxiety]; F19.90 Other psychoactive substance use, unspecified, uncomplicated; G47.00 Insomnia, unspecified; F60.2 Antisocial personality disorder; Z91.5 Personal history of self-harm; Z59.0 Homelessness; Z56.0 Unemployment, unspecified; F17.200 Nicotine dependence, unspecified, uncomplicated; Z81.1 Family history of alcohol abuse and dependence
CPT/HCPCS: 80053; 80306; 82075; 84439; 84443; 85025; 99285